=== PATIENT | male | born 1955 ===

== ENCOUNTER 2019-05-14 12:57 | Outpatient (CLI) | payer OTHER | END 2019-05-14 13:05 | disposition home or self-care (01) | LOC: LAB 12:57 | DX: R97.20 Elevated prostate specific antigen [PSA] (principal) ==

== ENCOUNTER 2019-07-03 07:35 | Outpatient (CLI) | payer OTHER | END 2019-07-03 09:06 | disposition home or self-care (01) | LOC: SONOGRAMA 07:35 | DX: C61 Malignant neoplasm of prostate (principal); R97.20 Elevated prostate specific antigen [PSA] ==

== ENCOUNTER 2019-07-15 07:39 | Outpatient (CLI) | payer OTHER | END 2019-07-15 07:47 | disposition home or self-care (01) | LOC: LAB 07:39 | DX: N20.0 Calculus of kidney (principal) ==

== ENCOUNTER 2019-07-17 07:50 | Outpatient (CLI) | payer OTHER | END 2019-07-17 11:51 | disposition home or self-care (01) | LOC: TOM 07:50 | DX: R97.20 Elevated prostate specific antigen [PSA] (principal) ==